=== PATIENT | male | born 1995 ===

== ENCOUNTER 2018-08-25 16:28 | Emergency (ER) | payer OTHER ==
[2018-08-25 16:59] VITALS: BP 132/84; PULSE 65; RESP 18; TEMP 99.1; O2SAT 99
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
== END 2018-08-25 18:28 | disposition home or self-care (01) ==
LOC: C.ER 16:28
DX: S05.12XA Contusion of eyeball and orbital tissues, left eye, initial encounter (principal); Y09 Assault by unspecified means